=== PATIENT | female | born 1945 | race Caucasian/White ===

== ENCOUNTER 2021-10-06 09:14 | Observation (INO) ==
[2021-10-06] MEDS ORDERED: Naloxone 0.4 MG/ML INJ IVP PRN (12:09)
[2021-10-06] MEDS ORDERED: Melatonin 3 MG TABLET PO PRN (12:09)
[2021-10-06 14:23] LABS: BUN/Creatinine Ratio 26 (6-26); Blood Urea Nitrogen 24 mg/dL (8-23); Calcium 9.8 mg/dL (8.6-10.3); Carbon Dioxide 28 mEq/L (23-29); Chloride 107 mEq/L (98-107); Glucose 137 mg/dL (70-105); Osmolality,Calculated 296 (280-300); Sodium 140 mEq/L (136-145); eGFR For African Americans > 60 (> 60); eGFR For Non-African Americans 58 (> 60)
[2021-10-07] MEDS ORDERED: (Omega-3 Fatty Acids [Fish Oil] 300 MG Capsule) PO SCH (09:00)
[2021-10-07] MEDS: (Potassium 99 MG Tablet) PO SCH (11:28)
[2021-10-07] MEDS: Vitamin E 200 UNIT (90MG) CAPSULE PO SCH (11:28)
[2021-10-07] MEDS: Ascorbic Acid 500 MG TABLET PO SCH (11:28)
[2021-10-07] MEDS: Metoprolol XL (24 HR) Succ 25 MG TAB.ER.24H PO SCH (11:28)
[2021-10-07] MEDS: Cholecalciferol (D-3) 1,000 UNIT (25MCG) TABLET PO SCH (11:28)
[2021-10-07] MEDS ORDERED: *HR* Rivaroxaban 10 MG TABLET PO SCH (17:00)
[2021-10-08] MEDS ORDERED: *HR* Rivaroxaban 10 MG TABLET PO SCH (08:00)
[2021-10-08] MEDS: Metoprolol XL (24 HR) Succ 25 MG TAB.ER.24H PO SCH (08:04)
[2021-10-08] MEDS: Cholecalciferol (D-3) 1,000 UNIT (25MCG) TABLET PO SCH (08:04)
[2021-10-08] MEDS: Ascorbic Acid 500 MG TABLET PO SCH (08:04)
[2021-10-08] MEDS: Vitamin E 200 UNIT (90MG) CAPSULE PO SCH (08:04)
[2021-10-08] MEDS: (Potassium 99 MG Tablet) PO SCH (08:05)
[2021-10-08] MEDS ORDERED: 0.9 % Sodium Chloride 500 ML IVC ONE (12:39)
[2021-10-08 12:48] VITALS: BP 140/89; PULSE 91; TEMP 98.4; O2SAT 99
[2021-10-08] MEDS: *HR* Midazolam HCl 5 MG/5 ML VIAL IVP PRN ×3 (12:55→13:02)
[2021-10-08] MEDS: *HR* FentaNYL (PF) 100 MCG/2 ML VIAL IVP PRN ×3 (12:55→13:02)
== END 2021-10-08 16:13 | disposition home or self-care (01) ==
LOC: 2ANU
PROVIDERS: ADMIT Internal Medicine Clinical Cardiac Electrophysiology; ATTEND Internal Medicine Clinical Cardiac Electrophysiology